=== PATIENT | female | born 1980 | race Caucasian/White ===

== ENCOUNTER 2021-07-13 13:00 | Emergency (ER) | payer BC ==
[2021-07-13 13:27] VITALS: BP 126/83; PULSE 81; RESP 18; TEMP 98.3
[2021-07-13] MEDS ORDERED: LIDOCAINE 1% INJ 10MG/ML (20 ML MDV) SQ ONE (15:43)
--- NOTE | 2021-07-13 16:06 | ED ---
General Adult HPI - General Chief complaint: Skin/Abscess/Foreign Body Stated complaint: cyst under breast Time Seen by Provider: 07/13/21 15:18 Source: patient Mode of arrival: ambulatory - History of Present Illness Initial comments: A 41-year-old female presents emergency Department with abscess under her left breast. Patient states about a year ago she was told she had a cyst under her left breast that has not bothered her up until yesterday when it began to get red, warm and painful to the touch. Patient states she was supposed to follow- up with dermatology, however she never made a follow-up appointment. Patient states yesterday afternoon she noticed this is becoming more red and painful and states she noticed pinpoint tip on the area that did begin to ooze. Patient states she did squeeze at that time and was able to get some pus out of it. Patient states today she did have some chills but states she was outside. Patient states she does feel little bit more tired today, however she denies any fever or body aches. Patient denies any nausea or vomiting. Patient denies any chest pain or shortness of breath, abdominal pain, nausea, vomiting, cysts, hea dache, lightheadedness, dizziness or change in vision. - Related Data Previous Rx's Medication Instructions Recorded Cephalexin [Keflex] 500 mg PO Q6HR #28 cap 07/13/21 Sulfamethox-Tmp 800-160Mg [Bactrim 1 tab PO Q12HR #14 tab 07/13/21 DS 800-160 mg] Allergies Allergy/AdvReac Type Severity Reaction Status Date / Time No Known Allergies Allergy Verified 07/13/21 13:27 Review of Systems ROS Statement: Those systems with pertinent positive or pertinent negative responses have been documented in the HPI. ROS Other: All systems not noted in ROS Statement are negative. Past Medical History Past Medical History: No Reported History History of Any Multi-Drug Resistant Organisms: None Reported Past Surgical History: Tubal Ligation, Uterine Ablation Past Psychological History: No Psychological Hx Reported Smoking Status: Never smoker Past Alcohol Use History: None Reported Past Drug Use History: None Reported General Exam General appearance: alert, in no apparent distress Head exam: Present: atraumatic, normocephalic, normal inspection Eye exam: Present: normal appearance, PERRL, EOMI. Absent: scleral icterus, conjunctival injection, periorbital swelling ENT exam: Present: normal exam, mucous membranes moist Neck exam: Present: normal inspection, full ROM. Absent: tenderness, meningismus, lymphadenopathy Respiratory exam: Present: normal lung sounds bilaterally. Absent: respiratory distress, wheezes, rales, rhonchi, stridor Cardiovascular Exam: Present: regular rate, normal rhythm, normal heart sounds. Absent: systolic murmur, diastolic murmur, rubs, gallop, clicks GI/Abdominal exam: Present: soft, normal bowel sounds. Absent: distended, tenderness, guarding, rebound, rigid Extremities exam: Present: normal inspection, full ROM, normal capillary refill. Absent: tenderness, pedal edema, joint swelling, calf tenderness Back exam: Present: normal inspection, full ROM. Absent: CVA tenderness (R), CVA tenderness (L), paraspinal tenderness, vertebral tenderness Neurological exam: Present: alert, oriented X3, CN II-XII intact Psychiatric exam: Present: normal affect, normal mood Skin exam: Present: warm, dry, other (Patient with abscess that is erythematous size of a quarter under left breast. Mildly warm to the touch Pinpoint noted with small amount of white pus oozing from site. ). Absent: rash Course Vital Signs 07/13/21 13:21 Temperature 98.3 F Pulse Rate 81 Respiratory 18 Rate Blood Pressure 126/83 O2 Sat by Pulse 98 Oximetry Procedures - Incision & Drainage Consent Obtained: verbal consent Site: other (Under left breast) Anesthetic Used: lidocaine 1% I&D Cleaning Method: Alcohol Wipe Sterile Field Used?: Yes Scalpel Used: #11 Needle Aspiration Performed?: No I&D Drainage Obtained: Pus, Blood Culture Obtained?: Yes Patient Tolerated Procedure: well, no complications Medical Decision Making - Medical Decision Making This 41-year-old female presents emergency Department with abscess under her left breast. Patient states around this area she did used to have a cyst, however yesterday she noticed this area becoming more erythematous, warm to touch and painful. Abscess about the size of a quarter was incised and drained. Pus and blood did ooze from abscess. Culture was obtained. Patient given dose of Keflex and Bactrim here along with Motrin. I did send a prescription for Keflex and Bactrim to patient's pharmacy. Patient instructed to follow up with the primary care provider next 24-48 hours. Strict return precautions were discussed. Patient verbally agreed to plan. Patient sent home in stable condition. Case discussed in detail with my attending, . Disposition Clinical Impression: Abscess Disposition: HOME SELF-CARE Condition: Stable Instructions (If sedation given, give patient instructions): Abscess (ED), Abscess Incision and Drainage (DC) Additional Instructions: Please up with primary care provider next 24-48 hours. Take antibiotics as directed. Take Tylenol or Motrin for symptom relief as directed. Return to the emergency department with any new, worsening or concerning symptoms. Prescriptions: Sulfamethox-Tmp 800-160Mg [Bactrim DS 800-160 mg] 1 tab PO Q12HR #14 tab Cephalexin [Keflex] 500 mg PO Q6HR #28 cap Is patient prescribed a controlled substance at d/c from ED?: No Referrals: Cassie Del Rosario MD [Primary Care Provider] - 1-2 days Time of Disposition: 16:29
[2021-07-13] MEDS ORDERED: CEPHALEXIN 500 MG CAP PO STA (16:21)
[2021-07-13] MEDS ORDERED: SULFAMETHOX-TMP 800-160MG 1 EACH TAB PO STA (16:21)
[2021-07-13] MEDS ORDERED: IBUPROFEN 600 MG TAB PO STA (16:22)
== END 2021-07-13 16:51 | disposition home or self-care (01) ==
LOC: EC 13:00
DX: L02.213 Cutaneous abscess of chest wall (principal)
CPT/HCPCS: 87070; 87205; 10060; 99282; J2001

== ENCOUNTER → 2022-04-14 | Outpatient (CLI) | payer BC ==
--- NOTE | 2022-04-18 08:35 | MM ---
Reason for Exam: Screening (asymptomatic). Baseline mammogram. Patient History: Menarche at age 9. First Full-Term at age 22. Patient has history of breast feeding. Last menstrual period: 08/28/2009 Risk Values: Rina 5 year model risk: 0.8%. NCI Lifetime model risk: 9.5%. Prior Study Comparison: Patient's first Mammogram. Tissue Density: The breast tissue is almost entirely fat. Findings: Analyzed By CAD. Mass within the right breast lateral upper aspect. It is at middle depth measuring 1.1 cm an approximately 1.5 cm from the nipple.Mass within the right breast upper outer quadrant at middle depth measuring 1.1 cm and approximately 11.5 cm from the nipple. No suspicious masses, calcifications or distortions in the left breast. Overall Assessment: Incomplete: need additional imaging evaluation, BI-RAD 0 Management: Diagnostic Breast Ultrasound of the right breast. A clinical breast exam by your physician is recommended on an annual basis and results should be correlated with mammographic findings. [facility] will attempt to contact patient to return for supplemental views and ultrasound if indicated. Electronically signed and approved by: Cristofer Nye M.D.
== END | disposition home or self-care (01) ==
LOC: RADMAMWWP 09:31
PROVIDERS: ATTEND Family Medicine
DX: Z12.31 Encounter for screening mammogram for malignant neoplasm of breast (principal)
CPT/HCPCS: 77063; 77067

== ENCOUNTER → 2022-04-20 | Outpatient (CLI) | payer BC ==
--- NOTE | 2022-04-20 11:33 | USB ---
Reason for Exam: Additional evaluation requested from abnormal screening. Patient History: Menarche at age 9. First Full-Term at age 22. Patient has history of breast feeding. Risk Values: Rina 5 year model risk: 0.8%. NCI Lifetime model risk: 9.5%. Prior Study Comparison: 04/14/2022 Bilateral MG 3D screening mammo w/cad, [facility]. Findings: The upper outer quadrant of the right breast, the axilla of the right breast and the retroareolar of the right breast were scanned. Targeted ultrasound right breast clot 12:00 including the subareolar region and axilla. At the 9:00 addition, 11 cm from the nipple, corresponding to the mammographic finding, there is a circumscribed but lobulated, oval hypoechoic lesion with some internal vascularity. This measures 1.2 x 1.1 x 0.4 cm. Biopsy is recommended. Fibroadenoma is possible. Other mass not excluded. At the 10:00 position, 11 cm from the nipple, there is a focal 1 cm patch of dense tissue embedded within fat lobules. No other solid or cystic lesion or axillary lymphadenopathy. Overall Assessment: Suspicious, BI-RAD 4 Management: Ultrasound Core Biopsy of the right breast. 9:00, 1.2 cm right breast mass, possible fibroadenoma. Results were given to the patient verbally at the time of exam. Electronically signed and approved by: Carley Tobias M.D. Radiologist
== END | disposition home or self-care (01) ==
LOC: RADUSWWP 10:56
PROVIDERS: ATTEND Family Medicine
DX: R92.8 Other abnormal and inconclusive findings on diagnostic imaging of breast (principal)

== ENCOUNTER → 2022-04-26 | Day surgery (SDC) | payer BC ==
--- NOTE | 2022-04-26 09:10 | MM ---
Reason for Exam: Post Procedure Mammogram. Last screening mammogram was performed less than 1 month ago. Patient History: Menarche at age 9. First Full-Term at age 22. Patient has history of breast feeding. Risk Values: Rina 5 year model risk: 0.8%. NCI Lifetime model risk: 9.5%. Prior Study Comparison: 04/14/2022 Bilateral MG 3D screening mammo w/cad, [facility]. Tissue Density: Right: The breast tissue is almost entirely fat. Overall Assessment: Post procedure mammogram for marker placement Management: Post Mammogram for Jeffry Placement of the right breast. Electronically signed and approved by: Aman Garcia DO
--- NOTE | 2022-05-01 09:31 | USB ---
Risk Values: Rina 5 year model risk: 0.8%. NCI Lifetime model risk: 9.5%. Prior Study Comparison: 04/14/2022 Bilateral MG 3D screening mammo w/cad, [facility]. Pathology Description: Location: 9 o'clock. Marker Left Behind. Needle Type: Mammotome Cores: 10 Skin Nicks: 1 Gauge: 13 The procedure of ultrasound guided core biopsy was explained to the patient. Benefits, alternatives, and risks were discussed. An informed consent was then obtained. The patient was placed in supine positioning for imaging and for the procedure. The overlying skin was prepped and draped in usual sterile fashion. Lidocaine buffered with bicarbonate was used as anesthetic into the skin and subcutaneous tissue up to area of concern in the right breast. A osmel was made with surgical scalpel. Under ultrasound guidance, a 12-gauge vacuum assisted biopsy gun device was used to obtain 10 core samples. Following this, a biopsy clip was left in lesion. The patient tolerated the procedure well without any immediate complication. The patient was kept in the radiology department for short stay after the procedure and then discharged home in stable condition. Postprocedure mammogram: The patient was transferred to mammography for physician ordered post procedure mammogram for clip placement verification. Impression: Successful, uncomplicated ultrasound guided core biopsy of area of concern in the right breast, full pathology results to follow. Pathology Results: Result: Benign, Fibroadenoma. RIGHT BREAST, NINE O'CLOCK POSITION, ULTRASOUND GUIDED CORE BIOPSY: Benign fibroadenoma. Overall Assessment: Benign Management: Diagnostic Breast Ultrasound of the right breast in 6 months. Electronically signed and approved by: Aman Garcia DO
== END ==
LOC: RADUSWWP 07:54
PROVIDERS: ATTEND Family Medicine
DX: D24.1 Benign neoplasm of right breast (principal)
CPT/HCPCS: 88305; 77065; 19083; A4648

== ENCOUNTER → 2022-05-03 | Outpatient (CLI) | payer BC ==
--- NOTE | 2022-05-03 13:12 | P.GSHP ---
History of Present Illness H&P Date: 05/03/22 Chief Complaint: abnormal right breast ultrasound Jenny is a 42 year old white female seen in consultation for DR. Del Rosario regarding a lesion in the right breast. She underwent a bilateral mammogram in [id number]. This revealed an area of concern in the right breast. An ultrasound was then performed. This was done on 1522. This revealed a 1.2 x 1.1 cm lesion at the 9 o'clock position good position 11 cm from the nipple. An ultrasound core biopsy was recommended. The biopsy was performed on and pathology was consistent with a fibroadenoma. The patient did not feel any lumps masses or nodules of concern in her breast and this was a routine scr eening mammogram. She had an ultrasound core biopsy on 04-26-22 which was a fibrodadenoma and was felt to be concordant. She did have a cyst drained in her left breast approximately 1 year ago. Otherwise she has not had any surgery on her breast. She does not complain of any recent trauma or infection in the breast. In the remote past she did have mastitis after breast-feeding one of her children. Caffiene: 1 cup/day; one can diet Pepsi per day nictoine: none chocolate: twice a week BCP: 6 years in remote past hormones: none Family History: maternal grandfather: lung cancer paternal grandfather: pancreatic cancer Hormonal History: menarche: 10 , breat fed: yes, age at first : 22 no periods an ablation done in 2010 Surgical History: tubaligation ablation wisdom teeth Medical History: anxiety/depression Social History: nicotine: none alcohol: occasional drugs: Recreational marijuana once or twice a month - Constitutional Constitutional: Reports sweats - EENT Comment: left eye decreased vision over the past three years Eyes: denies blurred vision, denies pain Ears: deny: decreased hearing, tinnitus Ears, nose, mouth and throat: Reports headache - Breasts Breasts: bilateral: as per HPI - Cardiovascular Cardiovascular: Denies chest pain, Denies shortness of breath - Respiratory Respiratory: Denies cough, Denies 7 - Gastrointestinal Gastrointestinal: Denies abdominal pain, Denies diarrhea, Denies nausea, Denies vomiting - Genitourinary (Female) Genitourinary: Denies dysuria, Denies hematuria - Menstruation Menstruation: Reports as per HPI - Musculoskeletal Musculoskeletal: Denies myalgias - Integumentary Integumentary: Denies pruritus, Denies rash - Neurological Neurological: Denies numbness, Denies weakness - Psychiatric Psychiatric: Reports anxiety, Reports depression - Endocrine Endocrine: Reports fatigue, Reports weight change - Hematologic/Lymphatic Comment: none - Allergic/Immunologic Allergic/Immunologic: Reports seasonal allergies Past Medical History Past Medical History: No Reported History Additional Past Medical History / Comment(s): Influenza positive Mar 16, 2022 History of Any Multi-Drug Resistant Organisms: None Reported Past Surgical History: Tubal Ligation, Uterine Ablation Past Anesthesia/Blood Transfusion Reactions: No Reported Reaction Past Psychological History: Anxiety, Depression Smoking Status: Never smoker Past Alcohol Use History: Rare Past Drug Use History: None Reported Medications and Allergies Home Medications Medication Instructions Recorded Confirmed Type FLUoxetine HCL [PROzac] 40 mg PO DAILY 04/21/22 04/21/22 History Allergies Allergy/AdvReac Type Severity Reaction Status Date / Time No Known Allergies Allergy Verified 04/21/22 10:36 Surgical - Exam - General no distress - Eyes normal ocular movement - ENT no hearing loss - Neck trachea midline - Respiratory normal respiratory effort - Cardiovascular Rhythm: regular Heart Sounds: normal: S1, S2 - Abdomen Abdomen: soft, non tender, no guarding, no rigid, no rebound - Integumentary normal turgor - Neurologic no disoriented, no combative - Musculoskeletal normal gait - Psychiatric oriented to time, oriented to person, oriented to place, speech is normal, memory intact Breast Exam: BRA: 44DDD Inspection: Bladder grade 2/3 ptosis Right breast: Multiple positional exam fibrocystic changes, well-healed scar from prior biopsy, no dominant masses or nodules of concern, the fibroadenoma is not palpable Right axilla: No adenopathy of concern Left breast: Multiple positional exam from cystic changes no dominant masses or nodules of concern Left axilla: No adenopathy of concern Results Mammogram and ultrasound reviewed in person with Dr. Garcia Assessment and Plan Assessment: Impression: Fibrocystic breast changes Biopsy-proven right breast fibroadenoma Anxiety/depression Plan: Close surveillance repeat right breast mammogram and ultrasound in 6 months with a physician exam at that time Patient to follow up sooner any questions or concerns Cc: Dr. Del Rosario
[2022-05-03 13:15] VITALS: BP 121/82; PULSE 96; RESP 16; TEMP 98.3
== END ==
LOC: WWCWWP 12:32
PROVIDERS: ATTEND Surgery
DX: Z01.411 Encounter for gynecological examination (general) (routine) with abnormal findings (principal); F41.9 Anxiety disorder, unspecified; N60.21 Fibroadenosis of right breast; D24.1 Benign neoplasm of right breast